=== PATIENT | male | born 1970 | race Caucasian/White ===

== ENCOUNTER 2022-03-25 09:03 | Outpatient (CLI) | payer BC, SELFPAY ==
[2022-03-25 12:58] LABS: Chloride* 102 mmol/L (96-114)
[2022-03-25 12:59] LABS: Albumin* 4.5 g/dL (3.3-5.0); Potassium* 4.4 mmol/L (3.6-5.1); Sodium* 137 mmol/L (135-149)
[2022-03-25 13:01] LABS: Cholesterol* 240 mg/dL (90-199)
[2022-03-25 13:02] LABS: Alanine Aminotransferase* 28 U/L (4-50); Alkaline Phosphatase* 85 U/L (40-150); Aspartate Amino Transferase* 26 U/L (12-35); Bilirubin Total* 0.8 mg/dL (0.1-1.5); Blood Urea Nitrogen* 17 mg/dL (7-30); Carbon Dioxide* 26 mmol/L (20-32); Estimated Glomerular Filt Rate 92 ml/min; Glucose* 106 mg/dL (60-115); Total Protein* 7.5 g/dL (6.0-8.3); Triglycerides* 127 mg/dL (40-149)
[2022-03-25 13:03] LABS: Calcium* 9.6 mg/dL (8.4-10.6); HDL Cholesterol* 45 mg/dL (>=40); LDL Cholesterol Calculated 170 mg/dL (<100)
[2022-03-25 13:32] LABS: PSA Screen* 0.75 ng/mL (0.10-4.00)
== END 2022-03-25 09:04 | disposition home or self-care (01) ==
PROVIDERS: PCP Family Medicine; Visit Provider Family Medicine
DX: Z00.00 Encounter for general adult medical examination without abnormal findings (principal); E78.5 Hyperlipidemia, unspecified; E66.9 Obesity, unspecified; I10 Essential (primary) hypertension; Z12.5 Encounter for screening for malignant neoplasm of prostate
CPT/HCPCS: 80053; 80061; 84153

== ENCOUNTER 2022-04-25 13:43 | Outpatient (CLI) | payer BC, SELFPAY ==
--- OUTSIDE RECORDS SUMMARY | 2022-04-25 15:53 | XMS_ITS | Clinical Summary ---
:1970 Author Organization [facility] [place] [address] Care Team Providers Name Role Phone [facility] Primary Care Provider Allergies No known active allergies Medications No known medications Active Problems Not on file Immunizations Name Administration Dates Next Due Tdap 02/01/2007 Social History Tobacco Use Types Packs/Day Years Used Date Never Smoker Smokeless Tobacco: Current User Alcohol Use Standard Drinks/Week Comments Yes 0 (1 standard drink = 0.6 oz pure alcoho l) occassional Sex Assigned at Date Recorded Not on file Obstetrics History Last Filed Vital Signs Vital Sign Reading Time Taken Comments Blood Pressure 135/84 10/24/2012 5:50 PM CDT Pulse 83 10/24/2012 5:50 PM CDT Temperature 36.9 ??C (98.5 ??F) 10/24/2012 5:50 PM CDT Respiratory Rate - - Oxygen Saturation - - Inhaled Oxygen Concentration - - Weight 81.3 kg (179 lb 4 oz) 10/24/2012 5:50 PM CDT Height - - Body Mass Index - - Plan of Treatment Health Maintenance Due Date Last Done Comments COVID-19 vaccine series (#1) 02/06/1972 Depression screening for age 12+ 1983 BMI (ht and wt on same day) for age 18+ 1989 Hepatitis C screening for age 18-79 1989 Colonoscopy through age 75 2016 Lipids for age 45-75 2016 Tetanus booster 02/01/2017 02/01/2007 Zoster (shingles) series for age 50+ (1 of 2) 2021 Influenza for age 50-64 03/03/2022 Tdap Completed 02/01/2007 Results Not on filefrom Last 3 Months Insurance Payer Benefit Plan / Subscriber ID Effective Dates Phone Addre ss Type Group BLUE CROSS BLUE CROSS OF [id number] 2020-Present [address] [facility] [place] [address] Care Teams Visual Communications Instructor Relationship Specialty Start Date End Date [facility] [place] PCP - General 02/01/07 [address] [place] [address]
[2022-04-25 17:45] LABS: Chloride* 98 mmol/L (96-114); Potassium* 3.9 mmol/L (3.6-5.1); Sodium* 133 mmol/L (135-149)
[2022-04-25 17:48] LABS: Blood Urea Nitrogen* 19 mg/dL (7-30); Carbon Dioxide* 26 mmol/L (20-32); Creatinine* 1.1 mg/dL (0.5-1.5); Estimated Glomerular Filt Rate 82 ml/min
[2022-04-25 18:42] LABS: Glucose* 107 mg/dL (60-115)
== END 2022-04-25 13:44 | disposition home or self-care (01) ==
LOC: NFLDREF 15:52
PROVIDERS: PCP Family Medicine; Visit Provider Family Medicine
DX: I10 Essential (primary) hypertension (principal)
CPT/HCPCS: 80048

== ENCOUNTER 2022-05-02 13:45 | Outpatient (CLI) | payer BC, SELFPAY ==
--- OUTSIDE RECORDS SUMMARY | 2022-05-02 10:54 | XMS_ITS | Clinical Summary ---
:1970 Author Organization [facility] [place] [address] Care Team Providers Name Role Phone [facility] Primary Care Provider Allergies No known active [...] Type Group BLUE CROSS BLUE CROSS OF [id number] 2020-Present [address] [facility] [address] Care Teams Firearms Specialist Relationship Specialty Start Date End Date [facility] [place] General 02/01/07 [address] [place] [address]
[2022-05-02 15:03] LABS: Chloride* 98 mmol/L (96-114)
[2022-05-02 15:04] LABS: Potassium* 4.3 mmol/L (3.6-5.1); Sodium* 134 mmol/L (135-149)
[2022-05-02 15:06] LABS: Creatinine* 0.9 mg/dL (0.5-1.5); Estimated Glomerular Filt Rate 104 ml/min
[2022-05-02 15:07] LABS: Blood Urea Nitrogen* 18 mg/dL (7-30); Calcium* 9.1 mg/dL (8.4-10.6); Carbon Dioxide* 27 mmol/L (20-32); Glucose* 97 mg/dL (60-115)
== END 2022-05-02 13:46 | disposition home or self-care (01) ==
PROVIDERS: PCP Family Medicine; Visit Provider Family Medicine
DX: I10 Essential (primary) hypertension (principal)
CPT/HCPCS: 80048

== ENCOUNTER 2022-06-09 12:42 | Outpatient (CLI) | payer BC, SELFPAY ==
--- OUTSIDE RECORDS SUMMARY | 2022-06-09 12:44 | XMS_ITS | Clinical Summary ---
:1970 Author Organization [employer] [place] [address] Care Team Providers Name Role Phone [facility] Primary Care Provider Allergies No known [...] 02/06/1972 Depression screening for age 12+ 1983 HIV for age 15-65 1986 BMI (ht and wt on same day) [...] Type Group BLUE CROSS BLUE CROSS OF [id number] 2020-Present [address] [place] [address] Care Teams Client Advocate Relationship Specialty Start Date End Date [facility] [place] PCP - General 02/01/07 [address] [place] [address]
== END 2022-06-09 12:43 | disposition home or self-care (01) ==
LOC: OP CLINIC 12:43
PROVIDERS: PCP Family Medicine; Visit Provider Surgery
DX: Z12.11 Encounter for screening for malignant neoplasm of colon (principal); K63.5 Polyp of colon; K57.30 Diverticulosis of large intestine without perforation or abscess without bleeding
CPT/HCPCS: 45385; 88305; 99153; J1200; J2250; J3010

== ENCOUNTER 2023-04-03 07:38 | Outpatient (CLI) | payer BC, SELFPAY | END 2023-04-03 07:39 | disposition home or self-care (01) | LOC: NFLDREF 04-05 13:06 | PROVIDERS: PCP Family Medicine; Referring Provider Family Medicine; Visit Provider Family Medicine | DX: Z00.00 Encounter for general adult medical examination without abnormal findings (principal); E78.5 Hyperlipidemia, unspecified; I10 Essential (primary) hypertension; E66.9 Obesity, unspecified | CPT/HCPCS: 80053; 80061 ==

== ENCOUNTER 2024-04-29 10:20 | Outpatient (CLI) | payer BC, SELFPAY ==
--- OUTSIDE RECORDS SUMMARY | 2024-05-01 11:15 | XMS_ITS | Clinical Summary ---
Author Organization [facility] Address [place], [place] [address] Care Team Providers Care Tile Helper Name Role Phone Clinic, [facility] Primary Care Pr ovider Allergies No known active allergies Medications No known medications Immunizations Name Administration Dates Next Due Tdap 02/01/2007 Social History Tobacco Use Types Packs/Day Years Used Date Smoking Tobacco: Never Smokeless Tobacco: Current Alcohol Use Standard Drinks/Week Comments Yes 0 (1 standard drink = 0.6 oz pur e alcohol) occassional Sex and Gender Information Value Date Recorded Sex Assigned at Not on file Gender Identity Not on file Sexual Orientation Not on file Obstetrics History Last Filed Vital Signs Vital Sign Reading Time Taken Comments Blood Pressure 135/84 10/24/2012 5:50 PM CDT Pulse 83 10/24/2012 5:50 PM CDT Temperature 36.9 ??C (98.5 ??F) 10/24/2012 5:50 PM CD T Respiratory Rate - - Oxygen Saturation - - Inhaled Oxygen Concentration - - Weight 81.3 kg (179 lb 4 oz) 10/24/2012 5:50 PM CDT Height - - Body Mass Index - - Plan of Treatment Health Maintenance Due Date Last Done Comments Depression screening for age 12+ 1983 HIV for age 15-65 1986 BMI (ht and wt on same day) for age 18+ 1989 Hepatitis C screening for ag e 18-79 1989 Colonoscopy through age 75 2016 Lipids for age 45-75 2016 Tetanus booster 02/01/2017 02/01/2007 Zoster (shingles) series for age 50+ (1 of 2) 2021 COVID-19 vaccine series (1 - 2024-25 season) 2024 Influenza for age 50-64 03/03/2024 Tdap Completed 02/01/2007 Pneumococcal series for age 6-64 Aged Out No longer eligible based on patient's age to complete this topic Care Teams Tile Helper Relationship Specialty Start Date End Date Clinic, [facility] [address] [place], [place] [id number] PCP - General 02/01/07
== END 2024-04-29 10:21 | disposition home or self-care (01) ==
PROVIDERS: PCP Family Medicine; Referring Provider Family Medicine; Visit Provider Family Medicine
DX: Z01.818 Encounter for other preprocedural examination (principal); I10 Essential (primary) hypertension; E78.5 Hyperlipidemia, unspecified; Z12.5 Encounter for screening for malignant neoplasm of prostate; E66.9 Obesity, unspecified
CPT/HCPCS: 80053; 80061; G0103

== ENCOUNTER 2025-05-05 09:13 | Outpatient (CLI) | payer BC, SELFPAY | END 2025-05-05 09:14 | disposition home or self-care (01) | LOC: NFLDREF 05-15 02:48 | PROVIDERS: PCP Family Medicine; Referring Provider Family Medicine; Visit Provider Family Medicine | DX: E78.5 Hyperlipidemia, unspecified (principal) | CPT/HCPCS: 80053; 80061; G0103 ==